=== PATIENT | female | born 1955 | race Caucasian/White ===

== ENCOUNTER → 2019-04-28 | Outpatient (CLI) | payer BC ==
[~2019-04-28] MED LIST: CRESTOR 10MG10 MG PO; LEVOXYL0.112 MG PO; LOTENSIN HCT 201 TAB PO; NORCO 325 MG-7.1 TAB PO
== END ==
LOC: MC.RAD 04-15 15:30
DX: Z12.31 Encounter for screening mammogram for malignant neoplasm of breast (principal)

== ENCOUNTER → 2020-08-03 | Outpatient (CLI) | payer BC | LOC: MC.RAD 13:38 | DX: Z12.31 Encounter for screening mammogram for malignant neoplasm of breast (principal) ==